=== PATIENT | male | born 1955 | race African-American/Black ===

== ENCOUNTER → 2021-05-26 | Day surgery (SDC) | payer MEDICARE ==
[~2021-05-26] VITALS: Ht 193 cm; Wt 112.0 kg
[~2021-05-26] MED LIST: AMLO-187 PO; ASPI-630 PO; ATOR20TA58 PO; BUPR150T8 PO; FLUT1BLS3 IH; HYDR-2765 PO; IV RINGERS,LACTATED 1000ML 1,000 ML IV ONE; LIDOCAINE 2% PF 5 ML VIAL. ONE; LISI1TAB23 PO; METF500T16 PO; PROPOFOL 10 MG/ML (20ML) VIAL. IV ONE; TAMS0.4C97 PO; THIA100T8 PO
--- NOTE | 2021-05-26 13:16 | PDOC1 ---
History and Physical Date of Admission Date of Admission DATE: 05/26/21 TIME: 13:10 Identification/Chief Complaint Chief Complaint History of colon polyps. Source Source: Chart review, Patient History of Present Illness History of Present Illness 65 y/o male with h/o colon polyps; last colonoscopy 2014 and due. No complaints, other symptoms. Past Medical History Cardiovascular: HTN, Hyperlipidemia Pulmonary: Other ([facility]ORE) Renal/: Benign prostatic enlarg. Family History Family History: Cancer (bladder), Coronary Artery Disease, Diabetes Social History Smoke: No ALCOHOL: occassional Drugs: None Current Medications Current Medications Current Medications Ringer's Solution 1,000 ml @ 75 mls/hr 1X ONCE IV ; Start 05/26/21 at 12:15; Stop 05/27/21 at 01:34 Active Scripts Active Thiamine Hcl 100 Mg Tablet 100 Mg PO DAILY PRN Hydrocodone-Apap 7.5-325 (Hydrocodone Bit/Acetaminophen) 1 Each Tablet 1 Tab PO PRN Q6HRS PRN Allergies Allergies: Coded Allergies: No Known Drug Allergies (Unverified , 06/01/16) ROS Review of System Otherwise negative. Physical Exam General: Alert, Oriented X3, No acute distress Lungs: Clear to auscultation Heart: S1S2, RRR, no gallops, no murmurs Abdomen: Normal bowel sounds, Soft, No tenderness, No hepatosplenomegaly, No masses Rectal Exam: deferred (to procedure) Extremities: No cyanosis, No edema Skin: No significant lesion Neuro: Normal speech, Strength at 5/5 X4 ext, Normal tone, Sensation intact, Cranial nerves 3-12 NL, Reflexes 2+ Psych/Mental Status: Mental status NL, Mood NL Vitals Vitals See nursing record. VTE Prophylaxis Ordered VTE Prophylaxis Devices: No VTE Pharmacological Prophylaxi: No Assessment/Plan Assessment/Plan IMP: History of colon polyps, due. PLAN: colonoscopy. LALO LILLY MD May 26, 2021 13:16
--- NOTE | 2021-05-26 15:27 | PDOC4 ---
PROCEDURE Procedure Colonoscopy with biopsies Ind: H/o polyps, last 2014. Meds: per anesthesia Findings; VICENTE--Normal --'Scope advanced to cecum. Mucosa normal. Prep adequate. Scattered diverticula, sigmoid to transverse. 2, 3-4 mm polyps, proximal transverse, biopsied off. Single 3-4 mm polyp in descending, biopsied off. Exam otherwise normal. Barb. well. IMP: Small polyps. Diverticulosis. REC: Resume home meds, diet. Await path. F/u in 2 weeks. Repeat exam in 5 years. LALO LILLY MD May 26, 2021 15:27
[2021-05-26 15:49] VITALS: BP 90/57
== END | disposition home or self-care (01) ==
LOC: ENDOS 13:06
PROVIDERS: ATTEND Internal Medicine Gastroenterology
DX: Z12.11 Encounter for screening for malignant neoplasm of colon (principal); K57.30 Diverticulosis of large intestine without perforation or abscess without bleeding; K63.5 Polyp of colon; K63.89 Other specified diseases of intestine; I10 Essential (primary) hypertension; G47.33 Obstructive sleep apnea (adult) (pediatric); E11.9 Type 2 diabetes mellitus without complications; E66.9 Obesity, unspecified; N40.0 Benign prostatic hyperplasia without lower urinary tract symptoms; Z86.010 Personal history of colon polyps; Z79.82 Long term (current) use of aspirin; Z79.84 Long term (current) use of oral hypoglycemic drugs; Z79.899 Other long term (current) drug therapy; Z98.890 Other specified postprocedural states; Z82.49 Family history of ischemic heart disease and other diseases of the circulatory system; Z83.3 Family history of diabetes mellitus
CPT/HCPCS: 45380; J2704